=== PATIENT | male | born 1980 | race Caucasian/White ===

== ENCOUNTER 2016-11-22 11:42 | Emergency (ER) | payer OTHER ==
[~2016-11-22] VITALS: Ht 185.4 cm; Wt 150.0 kg
[~2016-11-22 11:42] MED LIST: ATENOLOL50 MG PO; AUGMENTIN875 MG PO; CARBAMAZEPINE200 MG PO; DILANTIN100 MG PO; DOXEPIN HCL10 MG PO; ESCITALOPRAM OX10 MG PO; KLONOPIN1 MG PO; NAPROSYN500 MG PO; PHENYTEK200 MG PO; PHENYTOIN SODI100 M1 PO; PHENYTOIN SODI200 MG PO; SERTRALINE HCL50 MG PO; TEGRETOL200 MG PO; TENORMIN50 MG PO; TESSALON PERLE100 MG PO; ULTRAM50 MG PO; ZOCOR40 MG PO; ZOFRAN4 MG PO; ZOLOFT50 MG PO
[2016-11-22 14:23] LABS: MCH 30.9 PG (29.0-34.0); MCHC 34.8 G/DL (30.0-36.0); MCV 88.8 FL (86-99); MEAN PLAT.VOLUME 9.1 uM^3 (9.0-12.4); PLATELET COUNT 234 K/uL (156-360); RBC DIS.WIDTH-CV 11.9 % (11.8-14.6); RBC DIS.WIDTH-SD 38.3 % (39-53); RED BLOOD COUNT 4.73 M/uL (4.00-5.50); WHITE BLOOD COUNT 6.5 K/uL (4.1-10.2)
[2016-11-22 14:37] LABS: CHLORIDE 105 mEq/L (99-109); POTASSIUM 4.5 mEq/L (3.7-5.4); SODIUM 140 mEq/L (136-147)
[2016-11-22 14:39] LABS: GLUCOSE 102 mg/dL (70-99)
[2016-11-22 14:40] LABS: ANION GAP 9 MEQ/L (2-14)
[2016-11-22 14:41] LABS: TOTAL BILIRUBIN 0.3 mg/dL (0.0-1.0)
[2016-11-22 14:42] LABS: ALKALINE PHOSPHATASE 109 IU/L (3-129)
[2016-11-22 14:43] LABS: GFR ESTIMATE (CALCULATED) > 59 mL/min/
[2016-11-22 14:44] LABS: UREA NITROGEN (BUN) 12 mg/dL (9-23)
[2016-11-22 15:58] LABS: SAMPLE HEMOLYSIS CHECK 0; SAMPLE ICTERIC CHECK 0; SAMPLE LIPEMIA CHECK 0
[2016-11-22] MEDS ORDERED: CEFDINIR300 MG PO (16:35)
[2016-11-22 16:44] VITALS: BP 114/84
== END 2016-11-22 16:45 | disposition home or self-care (01) ==
LOC: EME 11:42 → RME 11:42
PROVIDERS: Physician Assistant
DX: J01.90 Acute sinusitis, unspecified (principal); R42 Dizziness and giddiness; G40.909 Epilepsy, unspecified, not intractable, without status epilepticus; E78.5 Hyperlipidemia, unspecified; F17.200 Nicotine dependence, unspecified, uncomplicated
CPT/HCPCS: 70450; 80053; 80185; 85027; 93005; 99281; 99284